=== PATIENT | male | born 1970 | race American Indian/Alaskan Native ===

== ENCOUNTER 2024-07-27 09:44 | Outpatient (REF) | payer MEDICAID, SELFPAY ==
[2024-07-27 11:50] LABS: Alanine Aminotransferase 17 U/L (0-40); Albumin Level 4.2 g/dL (3.5-5.0); Alkaline Phosphatase 55 U/L (39-117); Anion Gap 11 (12-20); Aspartate Amino Transferase 37 U/L (5-37); Bilirubin Direct 0.2 mg/dL (0.0-0.5); Bilirubin Total 0.8 mg/dL (0.0-1.0); Blood Urea Nitrogen 17 mg/dL (9-16); Calcium 9.7 mg/dL (8.4-10.2); Carbon Dioxide 25 mmol/L (22-29); Chloride 107 mmol/L (96-108); Cholesterol 180 mg/dL (<200); Estimated Glomerular Filt Rate > 60; Glucose Random 105 mg/dL (60-115); HDL Cholesterol 44 mg/dL (>40); LDL Cholesterol Calculated 121 mg/dL (<100); Sodium 139 mmol/L (135-145); Total Protein 7.9 g/dL (6.5-8.0); Triglycerides 76 mg/dL (<150)
[2024-07-27 12:03] LABS: PSA,Total (Free>4and<10) 1.09 ng/mL (0.00-4.00)
[2024-07-27 12:04] LABS: Estimated Average Glucose 88 mg/dL; Hemoglobin A1C 93.1166 umol/L; Hemoglobin A1c % 4.7 % (<6.0); Total Hemoglobin (HGBA1C) 3283.5007 umol/L
[2024-08-01 14:34] LABS: Testosterone, Total 388 ng/dL (250-1100)
== END 2024-07-27 09:45 | disposition home or self-care (01) ==
LOC: HO.HHCL 09:44
PROVIDERS: Visit Provider Student in an Organized Health Care Education/Training Program
DX: N52.9 Male erectile dysfunction, unspecified (principal); I10 Essential (primary) hypertension
CPT/HCPCS: 36415; 80048; 80061; 80076; 83036; 84153; 84403

== ENCOUNTER 2025-06-15 10:25 | Outpatient (REF) | payer SELFPAY ==
--- OUTSIDE RECORDS SUMMARY | 2025-06-15 09:45 | XMS_ITS | Encounter Summary ---
Author Organization [employer] [facility] Address [address] [place] [address] 7 [place] [address] Care Team Providers Care Measurement Psychologist Name Role Phone Delia Romero CNP Primary Care Provider [phone] Reason for Referral * Consultation (Routine) - Pending Review Specialty Diagnoses / Procedures Referred By Justin staples Referred To Contact Urology Diagnoses Erectile dysfunction, unspecified erectile dysfunction type Delia Romero CNP [address] [place] [address] Phone: tel: fax: Referral ID Status Reason Start Date Expiration Date Visits Requested Visits Authorized [id number] Pending Review Specialty Services Required 06/15/2025 06/15/2026 1 1 * Consultation (Routine) - Authorized Specialty Diagnoses / Procedures Referred By Justin staples Referred To Contact Behavioral Health Diagnoses Anxiety Delia Romero CNP [address] [place] [address] Phone: tel: fax: Referral ID Status Reason Start Date Expiration Date Visits Requested Visits Authorized [id number] Authorized Specialty Services Required 06/15/2025 06/15/2026 1 1 * Consultation (Routine) - Pending Review Specialty Diagnoses / Procedures Referred By Justin staples Referred To Contact Gastroenterology Diagnoses Encounter for screening for malignant neoplasm of colon Delia Romero CNP [address] [place] [address] Phone: tel: fax: Referral ID Status Reason Start Date Expiration Date Visits Requested Visits Authorized [id number] Pending Review Specialty Services Required 06/15/2025 06/15/2026 1 1 Reason for Visit * Reason Comments Follow-up referrals Encounter Details Date Type Department Care Team ([facility] st Contact Info) Description 06/15/2025 9:45 AM EDT Office Visit [facility] [address] [place] [address] Delia Romero CNP [address], [place] [phone] Encounter for screening for malignant neoplasm of colon (Primary Dx); Anxiety; Constipation, unspecified constipation type; Erectile dysfunction, unspecified erectile dysfunction type; Hypertension, unspecified type; Dietary counseling; Exercise counseling; Class 2 severe obesity due to excess calories with serious comorbidity and body mass index (BMI) of 37.0 to 37.9 in adult (CMS/[facility]) Social History Tobacco Use Types Packs/Day Years Used Date Smoking Tobacco: Never Passive Smoke Exposure: Never Smokeless Tobacco: Never Depression Answer Date Recorded Patient Health Questionnaire-9 Score 10 06/15/2025 Patient Health Questionnaire-9 Score 10 06/15/2025 Last PHQ-9: Questionnaire Data Not on file 0 06/15/2025 Housing Stability Answer Date Recorded What is your housing situation today? I have demetrio yao 12/24/[address] you li ve. Do you have problems with any of the following? None of the above 12/24/2024 Food Insecurity Answer Date Recorded Within the past 12 months, y ou worried that your food would run out before you got money to buy more: Never True 12/24/2024 Within the past 12 months,th e food you bought just didn't last and you didn't have enough money to get more: Never True Transportation Answer Date Recorded In the past 12 months, has l ack of transportation kept you from medical appts, meetings, work or from getting things needed for daily living? No 12/24/2024 Utilities Answer Date Recorded In the past 12 months, has t he electric, gas, oil or water company threatened to shut off services in your home? No 12/24/2024 Depression Answer Date Recorded Patient Health Questionnaire-2 Score 2 06/15/2025 Internet Access Answer Date Recorded Internet Access Q1 Yes 12/24/2024 Internet Access Q2 Not on file 12/24/2024 Sex and Gender Information Value Date Recorded Sex Assigned at Male 07/01/2023 10:32 AM EDT Legal Sex Male 10:22 AM EDT Gender Identity Male 07/01/2023 10:32 AM EDT Sexual Orientation Straight 07/01/2023 10 :32 AM EDT documented as of this encounter Last Filed Vital Signs Vital Sign Reading Time Taken Comments Blood Pressure 138/84 06/15/2025 9:50 AM EDT Pulse 74 06/15/2025 9:50 AM EDT Temperature 36.6 C (97.9 F) 06/15/2025 9:50 AM EDT Respiratory Rate 18 06/15/2025 9:50 AM EDT Oxygen Saturation 99% 06/15/2025 9:50 AM EDT Inhaled Oxygen Concentration - - Weight 105 kg (232 lb) 06/15/2025 9:50 AM EDT Height 167.6 cm (5' 6 ) 06/15/2025 9:50 AM EDT Body Mass Index 37.45 06/15/2025 9:50 AM EDT documented in this encounter Functional Status * Over the past 2 weeks, how often have you been bothered by any of the following problems? Question Answer Date of Assessment Author Patient Health Questionnaire -2 Score 2 06/15/2025 11:44 AM EDT Sa phil Clements [place] * Little interest or pleasure in doing things Answer Date of Assessment Author Several days 06/15/2025 11:44 AM EDT Fely Coleman [place] * Feeling down, depressed, or hopeless Answer Date of Assessment Author Several days 06/15/2025 11:44 AM EDT Fely Coleman MA * Trouble falling or staying asleep, or sleeping too much Answer Date of Assessment Author Nearly every day 06/15/2025 11:44 AM EDT Fely Sheppard MA * Feeling tired or having little energy Answer Date of Assessment Author Nearly every day 06/15/2025 11:44 AM EDT Fely Sheppard MA * Poor appetite or overeating Answer Date of Assessment Author Not at all 06/15/2025 11:44 AM EDT Fely Coleman MA * Feeling bad about yourself - or that you are a failure or have let yourself or your family down Answer Date of Assessment Author Several days 06/15/2025 11:44 AM EDT Fely Coleman MA * Trouble concentrating on things, such as reading the newspaper or watching television Answer Date of Assessment Author Not at all 06/15/2025 11:44 AM EDT Fely Coleman MA * Moving or speaking so slowly that other people could have noticed? Or the opposite - being so fidgety or restless that you have been moving around a lot more than usual. Answer Date of Assessment Author Several days 06/15/2025 11:44 AM EDT Fely Coleman MA * Thoughts that you would be better off or hurting yourself in some way Answer Date of Assessment Author Not at all 06/15/2025 11:44 AM SNEHAT Fely Coleman MA * Patient Health Questionnaire-9 Score Answer Date of Assessment Author 06/15/2025 11:44 AM SNEHAT Fely Coleman MA * How difficult have these problems made it for you to do your work, take care of things at home, or get along with other people? Answer Date of Assessment Author Somewhat difficult 06/15/2025 11:44 AM EDT Fely Alvarez [place] * Over the last 2 weeks, how often have you been bothered by any of the following problems? Question Answer Date of Assessment Author Feeling nervous, anxious, or on edge 1 06/15/2025 11:44 AM EDT Sa phil Clements MA Not being able to stop or control worrying 0 06/15/2025 11:44 AM EDT Sa phil Clements MA Worrying too much about different things 1 06/15/2025 11:44 AM SNEHAT Sa phil Clements MA Trouble relaxing 0 06/15/2025 11:44 AM SNEHAT Fely Clements MA Being so restless that it is hard to sit still 0 06/15/2025 11:44 AM EDT Sa phil Clements MA Becoming easily annoyed or irritable 1 06/15/2025 11:44 AM EDT Sa phil Clements MA Feeling afraid as if somethi ng awful might happen 1 06/15/2025 11:44 AM EDT Sa phil Clements MA JAY-7 Total Score 4 06/15/2025 11:44 AM EDT Fely Clements MA documented as of this encounter Progress Notes * Delia Romero CNP - 06/15/2025 9:45 AM EDT Subjective Patient ID: Edu Levy is a 54 y.o. male who presents for f/u for chronic conditions. HPI Current concerns - Reports hard and bloated abdomen, feeling as if abdomen is distended - Longstanding difficulty with bowel movements, describes constipation, currently going to the bathroom once daily but not always successfully - Occasional presence of bright and dark red blood in stool, notes strong stool odor - History of constipation, states it worsens during periods of emotional stress; associates currentsymptoms with anxiety over inability to travel to [place] - Denies depression, feels mentally well and positive except for current stressor -reports he had insurance change since he was last referred to urology, he was unable to attend urology appt when he was initially referred because his old insurance did not cover this service, he isrequesting new referral today to further evaluate his ED. Chronic conditions MILLIE -upon chart review it appears office has tried to reach pt to schedule appt without success. -he denies hearing from anyone regarding scheduling sleep study. HTN Pt adherent to medications Reports he has been trying to modify his diet for weight loss. Cysts of upper eyelid Pt referred for surgical removal, likely beningn nevus vs. SK Review of Systems Objective Vitals: 06/15/25 0950 BP: 138/84 Pulse: 74 Resp: 18 Temp: 97.9 ??F (36.6 ??C) SpO2: 99% Physical Exam Vitals reviewed. Constitutional: General: He is not in acute distress. Appearance: Normal appearance. He is not ill-appearing, toxic-appearing or diaphoretic. HENT: Head: Normocephalic and atraumatic. Cardiovascular: Rate and Rhythm: Normal rate and regular rhythm. Pulses: Normal pulses. Heart sounds: Normal heart sounds. No murmur heard. No friction rub. No gallop. Pulmonary: Effort: Pulmonary effort is normal. No respiratory distress. Breath sounds: Normal breath sounds. No stridor. No wheezing, rhonchi or rales. Chest: Chest wall: No tenderness. Abdominal: General: Bowel sounds are normal. There is distension. Palpations: There is no mass. Tenderness: There is no abdominal tenderness. Musculoskeletal: Right lower leg: No edema. Left lower leg: No edema. Neurological: General: No focal deficit present. Mental Status: He is alert and oriented to person, place, and time. Mental status is at baseline. Psychiatric: Mood and Affect: Mood normal. Behavior: Behavior normal. Thought Content: Thought content normal. Judgment: Judgment normal. Assessment/Plan Problem List Items Addressed This Visit Hypertension BP at goal <140/90 Continue on current medications Continue with low sodium diet and ample hydration - Contacted polysomnography office to facilitate scheduling of polysomnography; patient to be notified regarding appointment status. Dietary counseling Exercise counseling Erectile dysfunction Relevant Orders Referral to Urology Other Visit Diagnoses Encounter for screening for malignant neoplasm of colon - Primary Relevant Medications polyethylene glycol, PEG, 3350 (MiraLax) 17 GM/SCOOP powder docusate sodium (Colace) 100 MG capsule Other Relevant Orders Referral to Gastroenterology Colonoscopy is due and appropriate for evaluating pt's current GI sx. Anxiety Relevant Medications polyethylene glycol, PEG, 3350 (MiraLax) 17 GM/SCOOP powder hydrOXYzine HCl (Atarax) 25 MG tablet Other Relevant Orders Referral to Behavioral Health Anxiety is intermittent not requiring daily maintenance medication - Prescribed hydroxyzine for management of anxiety symptoms, to be taken as needed up to three times daily (morning, noon, and bedtime) when experiencing anxiety. Not required for daily use; only take when symptomatic. - Referred to a therapist for psychological support and management of anxiety, with option to discuss emotional concerns. Constipation, unspecified constipation type Relevant Medications polyethylene glycol, PEG, 3350 (MiraLax) 17 GM/SCOOP powder docusate sodium (Colace) 100 MG capsule Other Relevant Orders CBC auto differential Fecal Globin By Immunochemistry Iron And Total Iron Binding Capacity Comprehensive Metabolic Panel Helicobacter pylori Antigen, EIA, Stool - Referred for colonoscopy to evaluate for possible colorectal pathology in the setting of changes in bowel movements and rectal bleeding. The referral process will include communication from the facility to arrange the procedure. - Ordered blood work to assess for underlying abnormalities or concerns contributing to gastrointestinal symptoms. Laboratory testing to be performed today; fasting not required. - Prescribed stool softener to promote regular bowel movements and alleviate constipation. - Prescribed Miralax to be used as needed to facilitate bowel movements and improve regularity. Class 2 severe obesity due to excess calories with serious comorbidity and body mass index (BMI) of37.0 to 37.9 in adult (CMS/[facility]) Dietary Recommendations: Fruits, vegetables, whole grains, protein foods, and fat-free or low-fat dairy products are healthychoices. Eat different types of protein foods in your diet. This can include seafood, lean meats, poultry, beans, peas, lentils, nuts, seeds, soy products, and eggs. Limit foods and beverages higher in added sugars, saturated fat, and sodium. Exercise Recommendations: At least 150 minutes of moderate-intensity physical activity per week, or an equivalent combinationof moderate- and vigorous-intensity activity F/u in 1 month on mental health documented in this encounter Plan of Treatment Upcoming Encounters Date Type Department Care Team (Late st Contact Info) Description 07/15/2025 1:30 PM EDT Office Visit [facility] [address] [place] [phone] Delia Romero CNP [address] [place] [address] Scheduled Orders Name Type Priority Associated Diagnoses Orde r Schedule CBC auto differential Lab Routine Constipation, unspecified constipation type Expected: 06/15/2025 (Approximate), Expires: 06/15/2026 Fecal Globin By Immunochemistry Lab Routine Constipation, unspecified constipation type Expected: 06/15/2025 (Approximate), Expires: 06/15/2026 Iron And Total Iron Binding Capacity Lab Routine Constipation, unspecified constipation type Expected: 06/15/2025, Expires: 06/15/2026 Comprehensive Metabolic Panel Lab Routine Constipation, unspecified constipation type Expected: 06/15/2025 (Approximate), Expires: 06/15/2026 Helicobacter pylori Antigen, EIA, Stool Lab Routine Constipation, unspecified constipation type Expected: 06/15/2025, Expires: 06/15/2026 Scheduled Referrals Name Type Priority Associated Diagnoses Order Schedule Referral to Gastroenterology Outpatient Referral Routine Encounter for screening for malignant neoplasm of colon Expected: 06/15/2025 (Approximate), Expires: 06/15/2026 Referral to Behavioral Health Outpatient Referral Routine Anxiety Expected: 06/15/2025 (Approximate), Expires: 12/13/2026 Referral to Urology Outpatient Referral Routine Erectile dysfunction, unspecified erectile dysfunction type Expected: 06/15/2025 (Approximate), Expires: 06/15/2026 documented as of this encounter Visit Diagnoses Diagnosis Encounter for screening for malignant neoplasm of colon- Primary Anxiety Anxiety state, unspecified Constipation, unspecified constipation type Erectile dysfunction, unspecified erectile dysfunction type Hypertension, unspecified type Dietary counseling Dietary surveillance and counseling Exercise counseling Class 2 severe obesity due to excess calories with serious comorbidity and body mass index (BMI) of 37.0 to 37.9 in adult (CMS/[facility]) documented in this encounter Additional Health Concerns Assessment Noted Time PHQ-9 Depression Total Score: 025 11:44 AM EDT documented as of this encounter Care Teams Measurement Psychologist Relationship Specialty Start Date End Date Delia Romero CNP [address] [place] [id number] PCP - General Family Medicine 09/24/24 documented as of this encounter
--- OUTSIDE RECORDS SUMMARY | 2025-06-15 12:38 | XMS_ITS | Clinical Summary ---
Author Organization [employer] Address [address] [facility] [address] [place] [address] Care Team Providers Care Residential Carpenter Name Role Phone Delia Romero MANAGER PRIMARY CARE Primary Care Provider [phone] [phone] Allergies No known active allergies Medications * This document contains information received from the source organization and may not represent a complete record from that organization. sildenafil (Viagra) 50 MG tabletIndication s:Erectile dysfunction, unspecified erectile dysfunction type Take 1 tablet (50 mg) by mouth if needed for erectile dysfunction. 10 tablet 11 4 Active losartan (Cozaar) 50 MG tabletIndication s:Hypertension, unspecified type Take 1 tablet (50 mg) by mouth Once per day. 90 tablet 5 Active polyethylene glycol, PEG, 3350 (MiraLax) 17 GM/SCOOP powderIndication s:Encounter for screening for malignant neoplasm of colon Take 17 g by mouth Once per day for 14 days. 238 g 5 06/29/20 25 Active docusate sodium (Colace) 100 MG capsuleIndicatio ns:Encounter for screening for malignant neoplasm of colon Take 1 capsule (100 mg) by mouth 2 times daily for 10 days. 20 capsule 5 06/25/20 25 Active hydrOXYzine HCl (Atarax) 25 MG tabletIndication s:Anxiety Take 1 tablet (25 mg) by mouth if needed in the morning, at noon, and at bedtime for itching. 90 tablet 5 07/15/20 25 Active Active Problems Problem Noted Date Diagnosed Date Healthcare maintenance 09/24/2024 Assessment & Plan (09/24/2024 3:22 PM EST): Offered due vaccinations, pt declines. Pt declines STI/STD screening today. Will send referral for [facility] for routine dental examination Ordered CBC to obtain baseline, also to r/o nutritional etiology for glossitis. Cyst of left upper eyelid 09/24/2024 Assessment & Plan (09/24/2024 3:25 PM EST): Multiple skin tags present on eyelids bilaterally, one prominent 1.5 mm flesh colored cyst that appears to be fluid filled over R eyelid has been growing in size. Will send referral to derm clinic Dietary counseling 09/24/2024 Assessment & Plan (09/24/2024 3:27 PM EST): Pt plans to eat low sodium diet and incorporate at least 2-3 serving of fruits and vegetables daily. Exercise counseling 09/24/2024 Assessment & Plan (09/24/2024 3:27 PM EST): Pt plans to exercise for 30 minutes daily Tongue swelling 09/24/2024 Assessment & Plan (09/24/2024 3:28 PM EST): No current tongue swelling, physical exam wnl today Pt complaining of snoring and tongue swelling that affects breathing while asleep Sent referral to sleep medicine Erectile dysfunction 09/24/2024 Assessment & Plan (09/24/2024 3:30 PM EST): Educated pt that medication works best on an empty stomach and it should be used 1 hr prior to intercourse. Sees a urologist Adjustment disorder with mixed anxiety and depre ssed mood 09/15/2024 Hypertension 07/02/2024 Assessment & Plan (09/24/2024 3:23 PM EST): Pt BP at goal <140/90 when rechecked Denies CP, PARADA, dizziness Continue on Cozaar as prescribed Assessment & Plan (07/02/2024 3:33 PM EDT): Will call to get pt on new pt list. -prescribed 30 days refill with 1 repeat. -ER precautions given Encounters Date Type Department Care Team Description 06/15/2025 9:45 AM EDT Office Visit [facility] MED & PEDS [address] [place] [address] Delia Romero CNP Encounter for screening for malignant neoplasm of colon (Primary Dx); Anxiety; Constipation, unspecified constipation type; Erectile dysfunction, unspecified erectile dysfunction type; Hypertension, unspecified type; Dietary counseling; Exercise counseling; Class 2 severe obesity due to excess calories with serious comorbidity and body mass index (BMI) of 37.0 to 37.9 in adult ([facility]) 06/15/2025 Travel 06/07/2025 Telephone [facility] MED & PEDS [address] [place], [place] [phone] Delia Romero CNP chart prep 03/25/2025 10:15 AM EDT Office Visit [facility] MEDICINE [address] [place], [place] [phone] Dawood Wallis MD Cyst of left upper eyelid (Primary Dx) 03/25/2025 Refill [facility] [address] [place], [place] [phone] Delia Romero CNP Hypertension, unspecified type 03/25/2025 Refill [facility] [address] [place], [place] [phone] Delia Romero CNP Hypertension, unspecified type 03/25/2025 Travel from Last 3 Months Immunizations Immunization Administration Dates Next Due HepB-CpG 05/01/2024 Tdap 04/24/2024 Family History Medical History Relation Name Comments Diabetes Father Throat cancer Father Relation Name Status Comments Father Social History Tobacco Use Types Packs/Day Years Used Date Smoking Tobacco: Never Passive Smoke Exposure: Never Smokeless Tobacco: Never Tobacco Cessation:Counseling Given: Not Answered Depression Answer Date Recorded Patient Health Questionnaire-9 [...] Orientation Straight 07/01/2023 10 :32 AM EDT Last Filed Vital Signs Vital Sign Reading [...] Mass Index 37.45 06/15/2025 9:50 AM EDT Plan of Treatment Upcoming Encounters Date Type Department Care Team (Late st Contact Info) Description 07/15/2025 1:30 PM EDT Office Visit [facility] MED & PEDS [address] [place], [place] [phone] Delia Romero CNP [address] [place] [address] Health Maintenance Due Date Last Done Comments CT Colonography 1970 Colonoscopy 1970 FIT DNA/Cologuard 1970 FIT 1970 FOBT 1970 Sigmoidoscopy 1970 Derm Melanoma Skin Check 01/02/1971 Pneumococcal Vaccine: 50+ Years (1 of 1 - PCV) 2020 COVID-19 Vaccine (2 - 2024-2 6 season) 2025 05/08/2024 Influenza Vaccine (#1) 2025 Colorectal Cancer Screening 09/24/2025 Postponed from 1970 (Patient Refused) HIV Screening 09/24/2025 Postponed from 1970 (Patient Refused) Hepatitis C Screening 09/24/2025 Postpo johnathon from 1988 (Patient Refused) Zoster Vaccines (1 of 2) 09/24/2025 Pos tponed from 2020 (Patient Refused) Depression Monitoring 12/13/2025 06/15/2025 , 06/15/2025 SDOH Screening 12/24/2025 12/24/2024 Alcohol/Substance Use Screening 01/05/2026 01/05/2025 Disability Screening 01/05/2026 01/05/2025 Tobacco Screening 01/05/2026 01/05/2025 Lipid Panel 07/27/2029 07/27/2024 DTaP/Tdap/Td Vaccines (2 - T d or Tdap) 04/24/2034 04/24/2024 RSV Patients and Patients Aged 60 years or older (1 - 1-dose 75+ series) 2045 Hepatitis B Vaccines Discontinued 05/01/2024 HIB Vaccines Aged Out No longer eligi ble based on patient's age to complete this topic HPV Vaccines Aged Out No longer eligi ble based on patient's age to complete this topic Hepatitis A Vaccines Aged Out No long er eligible based on patient's age to complete this topic IPV Vaccines Aged Out No longer eligi ble based on patient's age to complete this topic Meningococcal B Vaccine Aged Out No l onger eligible based on patient's age to complete this topic Meningococcal Vaccine Aged Out No sandra charbel eligible based on patient's age to complete this topic RSV under 20 months Aged Out No longe r eligible based on patient's age to complete this topic Rotavirus Vaccines Aged Out No longer eligible based on patient's age to complete this topic Procedures Procedure Name Priority Date/Time Associated Diagnosis Comments LIPID PANEL, STANDARD Routine 07/27/2024 9:50 AM EDT Primary hypertension from Last 3 Months or Most Recently Relevant to Health Maintenance Results * (ABNORMAL) Lipid Panel, Standard (07/27/2024 9:50 AM EDT) Triglycerides 76 <150 mg/dL [facility] Comment:Desirable Triglyceri de: less than 150 mg/dLBorderline High Triglyceride 150-199 mg/dLHigh Triglyceride: 200-499 mg/dLVery High Triglyceride: greater than or equal to 5OO mg/dL Cholesterol 180 <200 mg/dL [facility] Comment:Desirable Cholestero l: less than 200 mg/dLBorderline High Cholesterol: 200-239 mg/dLHigh Cholesterol: greater than 239 mg/dL LDL Cholesterol Calculated 121(H) <100 mg/dL [facility] Comment:Desirable LDL: less than 100 mg/dLNear Optimal/Above Optimal LDL: 110- 129 mg/dLBorderline High LDL: 130-159 mg/dLHigh LDL: 160-189 mg/dLVery High LDL: greater than or equal to 190 mg/dL HDL Cholesterol 44 >40 mg/dL [facility] Comment:Desirable HDL: great er than 40 mg/dL Note: This HDL assay may give artificially low results in patients with liver disease. Blood Venous blood specimen / Unknown 07/27/2024 9:50 AM EDT 07/27/2024 11:04 AM EDT us Maddi Buenrostro MD LAB BLOOD ORDERABLES Final Resul t [facility] [address] [place], [place] [phone] from Last 3 Months or Most Recently Relevant to Health Maintenance Insurance [employer] [facility] 1 Care Teams Residential Carpenter Relationship Specialty Start Date End Date Delia Romero CNP [address] [place] [id number] PCP - General Family Medicine 09/24/24
--- OUTSIDE RECORDS SUMMARY | 2025-06-15 12:38 | XMS_ITS | Encounter Summary ---
Author Organization [employer] [facility] Address [address] [facility] [address] [place] [address] Care Team Providers Care Visitor Services Associate Name Role Phone Delia Romero CNP Primary Care Provider [phone] [phone] Reason for Visit * Reason Comments Med Refill Encounter Details Date Type Department Care Team (Late st Contact Info) Description 06/22/2024 Refill [facility] [address] [place], [place] [phone] Sandy Scanlon FNP [address] [place] [address] Social History Tobacco Use Types Packs/Day Years Used Date Smoking Tobacco: Never Passive Smoke Exposure: Never Smokeless Tobacco: Never Sex and Gender Information Value Date Recorded Sex Assigned at Male 07/01/2023 10:32 AM EDT Legal Sex Male 10:22 AM EDT Gender Identity Male 07/01/2023 10:32 AM EDT Sexual Orientation Straight 07/01/2023 10 :32 AM EDT documented as of this encounter Plan of Treatment Upcoming Encounters Date Type Department Care Team (Late st Contact Info) Description 07/15/2025 1:30 PM EDT Office Visit [facility] MED & PEDS [address] [place] [address] Delia Romero CNP [address] [place] [address] documented as of this encounter Visit Diagnoses Not on filedocumented in this encounter Care Teams Visitor Services Associate Relationship Specialty Start Date End Date Delia Romero CNP [address] [place] [address] PCP - General Family Medicine 09/24/24 documented as of this encounter
--- OUTSIDE RECORDS SUMMARY | 2025-06-15 12:38 | XMS_ITS | Encounter Summary ---
Author Organization [employer] Address [address] [facility] [address] [place] [address] Care Team Providers Care Stock Patcher Name Role Phone Nick Lopezjfliv FAUSTINO Primary Care Provider [phone] [phone] Reason for Visit * Reason Comments Med Refill Encounter Details Date Type Department Care Team (Late st Contact Info) Description 08/24/2024 Refill [facility] [address] [place], [place] [phone] Ramila Palafox MD [address] [place], [place] [phone] Hypertension, unspecified type Social History Tobacco Use Types Packs/Day Years Used Date Smoking Tobacco: Never Passive Smoke Exposure: Never Smokeless Tobacco: Never Sex and Gender Information Value Date Recorded Sex Assigned at Male 07/01/2023 10:32 AM EDT Legal Sex Male 10:22 AM EDT Gender Identity Male 07/01/2023 10:32 AM EDT Sexual Orientation Straight 07/01/2023 10 :32 AM EDT documented as of this encounter Miscellaneous Notes * Telephone Encounter - Tracy Thompson RN - 09/06/2024 11:49 AM EST Pt presents to Walk In requesting refill on BP medication from Sandy Scanlon NP. Pt informed would need to be seen by provider as pt not assigned to provider. Pt declines to wait to be seen by provider today, reports will come back tomorrow. RN informed pt, message would be sent regarding new pt appt. Pt verbalized understanding. No s/s expressed at this time with RN. RN reviewed ED precautions with pt. Pt verbalized understanding and in agreement. No further questions or concerns expressed at this time. Pt to F/U as needed. RN will forward message to new pt PAR regarding new pt/TP? Appt (TC noted from 07/09/24 regarding TPappt.) documented in this encounter Plan of Treatment Upcoming Encounters Date Type Department Care Team (Late st Contact Info) Description 07/15/2025 1:30 PM EDT Office Visit [facility] MED & PEDS [address] [place] [address] Delia Romero CNP [address] [place], [place] [phone] documented as of this encounter Visit Diagnoses Diagnosis Hypertension, unspecified type documented in this encounter Care Teams Stock Patcher Relationship Specialty Start Date End Date Delia Romero CNP [address] [place], [place] [phone] PCP - General Family Medicine 09/24/24 documented as of this encounter
--- OUTSIDE RECORDS SUMMARY | 2025-06-15 12:38 | XMS_ITS | Encounter Summary ---
Author Organization [employer] Address [address] [place] [address] Care Team Providers Care Manager Recruiting Name Role Phone Delia Romero FAUSTINO Primary Care Provider [phone] [phone] Encounter Details Date Type Department Care Team (Latest Contact Info) Description 06/15/2025 Travel Social History Tobacco Use Types Packs/Day Years [...] AM EDT documented as of this encounter Functional Status * Over the [...] 11:44 AM EDT Fely Coleman MA * Patient Health Questionnaire-9 Score Answer Date of Assessment Author 10 06/15/2025 11:44 AM EDT Fely Coleman MA * How difficult have [...] annoyed or irritable 1 06/15/2025 11:44 AM SNEHAT Sa phil Clements [place] Feeling afraid as if somethi ng awful might happen 1 06/15/2025 11:44 AM SNEHAT Sa phil Clements [place] JAY-7 Total Score 4 06/15/2025 11:44 AM SNEHAT Fely Clements [place] documented as of this encounter Plan of Treatment Upcoming Encounters Date Type Department Care Team (Late st Contact Info) Description 07/15/2025 1:30 PM EDT Office Visit [facility] MED & PEDS [address] [place] [address] Delia Romero CNP [address] [place] [address] documented as of this encounter Visit Diagnoses Not on filedocumented in this encounter Additional Health Concerns Assessment Noted Time PHQ-9 Depression Total Score: 10 025 11:44 AM EDT documented as of this encounter Care Teams Manager Recruiting Relationship Specialty Start Date End Date Delia Romero CNP [address] [place] [id number] PCP - General Family Medicine 09/24/24 documented as of this encounter
[2025-06-15 14:26] LABS: MANUAL DIFF FLAG NO
[2025-06-15 14:33] LABS: Hematocrit 43.7 % (42.0-52.0); Hemoglobin 14.7 g/dl (14.0-18.0); Imm Gran Abs Auto 0.05 X10*3/uL (0.00-0.03); Imm Gran Pct Auto 0.5 % (0.0-0.4); Lymphocytes Absolute Auto 2.6 X10*3/uL (1.2-4.9); Mean Corpuscular HGB Conc 33.6 g/dl (31.0-36.0); Mean Corpuscular Hemoglobin 28.0 pg (27.0-33.0); Mean Corpuscular Volume 83.2 fL (80.0-98.0); NRBC Abs Auto 0.000 X10*3/uL (0.0-0.012); NRBC Pct Auto 0.0 /100WBC (0.0-0.2); Platelet Count 187 X10*3/uL (160-400); Red Blood Count 5.25 X10*6/uL (4.60-5.80); White Blood Count 9.2 X10*3/uL (4.8-10.8)
[2025-06-15 15:28] LABS: Alanine Aminotransferase 19 U/L (0-40); Albumin Level 4.3 g/dL (3.5-5.0); Alkaline Phosphatase 58 U/L (39-117); Anion Gap 10 (12-20); Aspartate Amino Transferase 35 U/L (5-37); Blood Urea Nitrogen 14 mg/dL (9-16); Calcium 9.2 mg/dL (8.4-10.2); Carbon Dioxide 28 mmol/L (22-29); Chloride 105 mmol/L (96-108); Estimated Glomerular Filt Rate > 60; Iron 83 mcg/dL (45-160); Percent Iron Saturation 33 % (15-50); Potassium 4.0 mmol/L (3.3-5.1); Sodium 139 mmol/L (135-145); Total Iron Binding Capacity 254 mcg/dL (228-428); Total Protein 7.9 g/dL (6.5-8.0); Unsaturated Iron Binding 171 ug/dL
== END 2025-06-15 10:26 | disposition home or self-care (01) ==
LOC: HO.CHCLDS 10:25
DX: K59.00 Constipation, unspecified (principal); Z13.0 Encounter for screening for diseases of the blood and blood-forming organs and certain disorders involving the immune mechanism
CPT/HCPCS: 36415; 80053; 83540; 85025

== ENCOUNTER 2025-07-12 13:05 | Outpatient (REF) | payer OTHER, SELFPAY ==
--- OUTSIDE RECORDS SUMMARY | 2025-07-12 16:03 | XMS_ITS | Encounter Summary ---
Author Organization [employer] Address [address] [facility] [address] [place] [address] Care Team Providers Care Rn Clinical Quality Name Role Phone Nick Delia FAUSTINO Primary Care Provider [phone] [phone] Reason for Visit * Reason Comments Med Refill Encounter Details Date Type Department Care Team (Late st Contact Info) Description 08/24/[address] [facility] [address] [place], [place] [phone] Rmaila Palafox MD [address] [place], [place] [phone] Hypertension, unspecified type Social History Tobacco Use [...] Description 07/15/2025 1:30 PM EDT Office Visit [facility] MED & PEDS [address] [place] [address] Delia Romero CNP [address] [place] [address] documented as of this encounter Visit Diagnoses Diagnosis Hypertension, unspecified type documented in this encounter Care Teams Rn Clinical Quality Relationship Specialty Start Date End Date Delia Romero CNP PCP - General Family Medicine 09/24/24 documented as of this encounter
--- OUTSIDE RECORDS SUMMARY | 2025-07-12 16:03 | XMS_ITS | Encounter Summary ---
Author Organization [facility] [employer] Address [address] [facility] [address] [place] [address] Care Team Providers Care Golf Teacher Name Role Phone Delia Romero CNP Primary Care Provider [phone] [phone] Reason for Visit * Reason Onset Date Comments Med Refill 07/04/2025 Encounter Details Date Type Department Care Team (Late st Contact Info) Description 07/04/2025 Telephone [facility] [address] [place], [place] [phone] Delia Romero CNP [address] [place] [address] Med Refill Social History Tobacco Use Types Packs/Day Years [...] encounter Miscellaneous Notes * Telephone Encounter - Ramila Caballero RN - 07/04/2025 4:03 PM EDT Pt walked in requesting refill on losartan. Advised will have pcp review refill. documented in this encounter Plan of Treatment Upcoming Encounters Date Type Department Care Team (Late st Contact Info) Description 07/15/2025 1:30 PM EDT Office Visit [facility] MED & PEDS [address] [place] [address] Delia Romero CNP [address] [place] [address] documented as of this encounter Visit Diagnoses Not on filedocumented in this encounter Additional Health Concerns Assessment Noted Time PHQ-9 Depression Total Score: 10 025 11:44 AM EDT documented as of this encounter Care Teams Golf Teacher Relationship Specialty Start Date End Date Delia Romero CNP PCP - General Family Medicine 09/24/24 documented as of this encounter
--- OUTSIDE RECORDS SUMMARY | 2025-07-12 16:03 | XMS_ITS | Clinical Summary ---
Author Organization [employer] Address [address] [facility] [address] [place] [address] Care Team Providers Care Plastics Engineer Name Role Phone Delia Romero SOLDER DEPOSIT OPERATOR Primary Care Provider [phone] Allergies No known active allergies Medications * This document contains information received from the source organization and may not represent a complete record from that organization. sildenafil (Viagra) 50 MG tabletIndicatio ns:Erectile dysfunction, unspecified erectile dysfunction type Take 1 tablet (50 mg) by mouth if needed for erectile dysfunction. 10 tablet 11 09/24/20 24 Active hydrOXYzine HCl (Atarax) 25 MG tabletIndicatio ns:Anxiety Take 1 tablet (25 mg) by mouth if needed in the morning, at noon, and at bedtime for itching. 90 tablet 06/15/20 25 025 Active losartan (Cozaar) 50 MG tabletIndicatio ns:Hypertension , unspecified type Take 1 tablet (50 mg) by mouth Once per day. 90 tablet 07/05/20 25 Active losartan (Cozaar) 50 MG tabletIndicatio ns:Hypertension , unspecified type Take 1 tablet (50 mg) by mouth Once per day. 90 tablet 03/25/20 25 025 Discontinued(Re order (will not trigger notification to Pharmacy)) polyethylene glycol, PEG, 3350 (MiraLax) 17 GM/SCOOP powderIndicatio ns:Encounter for screening for malignant neoplasm of colon Take 17 g by mouth Once per day for 14 days. 238 g 06/15/20 25 025 docusate sodium (Colace) 100 MG capsuleIndicati ons:Encounter for screening for malignant neoplasm of colon Take 1 capsule (100 mg) by mouth 2 times daily for 10 days. 20 capsule 06/15/20 25 025 losartan (Cozaar) 50 MG tabletIndicatio ns:Hypertension , unspecified type Take 1 tablet (50 mg) by mouth Once per day. 90 tablet 07/05/20 25 025 Discontinued Active Problems Problem Noted Date Diagnosed Date Healthcare maintenance 09/24/2024 Assessment & Plan (09/24/2024 3:22 PM EST): Offered due vaccinations, pt declines. Pt declines STI/STD screening today. Will send referral for [facility] Dental for routine dental examination Ordered [...] Encounters Date Type Department Care Team Description 2025 Orders Only [facility] [address] [place] [address] Delia Romero CNP Hypertension, unspecified type 2025 Telephone [facility] [address] [place] [address] Delia Romero CNP 07/04/2025 Telephone [facility] [address] [place] [address] Delia Romero CNP Med Refill 06/15/2025 9:45 AM EDT Office Visit [facility] [address] [place] [address] Delia Romero CNP Encounter for screening for malignant neoplasm of colon (Primary Dx); Anxiety; Constipation, unspecified constipation type; Erectile dysfunction, unspecified erectile dysfunction type; Hypertension, unspecified type; Dietary counseling; Exercise counseling; Class 2 severe obesity due to excess calories with serious comorbidity and body mass index (BMI) of 37.0 to 37.9 in adult ([facility]) 06/15/2025 Travel 06/07/2025 Telephone [facility] [address] [place] [address] Delia Romero CNP chart prep from Last 3 Months Immunizations Immunization Administration [...] Description 07/15/2025 1:30 PM EDT Office Visit [facility] [address] [place] [address] Delia Romero, FAUSTINO [address] [place] [address] Health Maintenance Due Date Last Done Comments [...] Procedure Name Priority Date/Time Associated Diagnosis Comments COMPREHENSIVE METABOLIC PANEL Routine 06/15/2025 10:26 AM EDT Constipation, unspecified constipation type IRON AND TOTAL IRON BINDING CAPACITY Routine 06/15/2025 10:26 AM EDT Constipation, unspecified constipation type CBC WITH AUTO DIFFERENTIAL Routine 06/15/2025 10:26 AM EDT Constipation, unspecified constipation type LIPID PANEL, STANDARD Routine 07/27/2024 9:50 AM EDT Primary hypertension from Last 3 Months or Most Recently Relevant to Health Maintenance Results * (ABNORMAL) CBC auto differential (06/15/2025 10:26 AM EDT) White Blood Count 9.2 4.8 - 10.8 X10*3/uL [facility] Red Blood Count 5.25 4.60 - 5.80 X10*6/uL [facility] Hemoglobin 14.7 14.0 - 18.0 g/dl [facility] Hematocrit 43.7 42.0 - 52.0 % [facility] Mean Corpuscular Volume 83.2 80.0 - 98.0 fL [facility] Mean Corpuscular Hemoglobin 28.0 27.0 - 33.0 pg [facility] Mean Corpuscular HGB Conc 33.6 31.0 - 36.0 g/dl [facility] Red Cell Distribution Width 12.1 11.0 - 16.0 % [facility] Platelet Count 187 160 - 400 X10*3/uL [facility] Mean Platelet Volume 11.8 9.4 - 12.4 fL [facility] Neutrophils Percent Auto 54.6 45 - 73 % [facility] Imm Gran Pct Auto 0.5(H) 0.0 - 0.4 % [facility] Lymphocytes Percent Auto 28.2 20 - 40 % [facility] Monocytes Percent Auto 8.0 2 - 11 % [facility] Eosinophils Percent Auto 7.6(H) 0 - 4 % [facility] Basophils Percent Auto 1.1 0 - 2 % [facility] NRBC Pct Auto 0.0 0.0 - 0.2 /100WBC [facility] Neutrophils Absolute Auto 5.0 2.0 - 8.3 x10*3/uL [facility] Imm Gran Abs Auto 0.05(H) 0.00 - 0.03 X10*3/uL [facility] Lymphocytes Absolute Auto 2.6 1.2 - 4.9 X10*3/uL [facility] Monocytes Absolute Auto 0.7 0.1 - 1.2 X10*3/uL [facility] Eosinophils Absolute Auto 0.7(H) 0.0 - 0.4 X10*3/uL [facility] Basophils Absolute Auto 0.1 0.0 - 0.2 X10*3/uL [facility] NRBC Abs Auto 0.000 0.0 - 0.012 X10*3/uL [facility] Blood Venous blood specimen / Unknown 06/15/2025 10:26 AM EDT 06/15/2025 2:23 PM EDT [facility] LAB BLOOD ORDERABLES Niesha l Result [facility] [address], [place] [phone] * Iron And Total Iron Binding Capacity (06/15/2025 10:26 AM EDT) Iron 83 45 - 160 mcg/dL [facility] Total Iron Binding Capacity 254 228 - 428 mcg/dL [facility] Percent Iron Saturation 33 15 - 50 % [facility] Unsaturated Iron Binding 171 ug/dL [facility] Blood Venous blood specimen / Unknown 06/15/2025 10:26 AM EDT 06/15/2025 2:35 PM EDT Delia Romero SOLDER DEPOSIT OPERATOR LAB BLOOD ORDERABLES Niesha l Result [facility] [address] [place] [phone] [phone] * (ABNORMAL) Comprehensive Metabolic Panel (06/15/2025 10:26 AM EDT) Sodium 139 135 - 145 mmol/L [facility] Potassium 4.0 3.3 - 5.1 mmol/L [facility] Chloride 105 96 - 108 mmol/L [facility] Carbon Dioxide 28 22 - 29 mmol/L [facility] Anion Gap 10(L) 12 - 20 [facility] Urea Nitrogen (BUN) 14 9 - 16 mg/dL [facility] Creatinine, Serum 1.24 0.5 - 1.4 mg/dL [facility] Estimated Glomerular Filt Rate >60 [facility] Comment:Chronic Kidney Disea se: Estimated GFR < 60 mL/min/[id number] Kidney Disease: Estimated GFR < 15 mL/min/1.73m2 Glucose 103 60 - 115 mg/dL [facility] Calcium 9.2 8.4 - 10.2 mg/dL [facility] Bilirubin, Total 0.6 0.0 - 1.0 mg/dL [facility] Aspartate Amino Transferase 35 5 - 37 U/L [facility] Alanine Aminotransferase 19 0 - 40 U/L [facility] Total Protein 7.9 6.5 - 8.0 g/dL [facility] Albumin Level 4.3 3.5 - 5.0 g/dL [facility] Alkaline Phosphatase 58 39 - 117 U/L [facility] Blood Venous blood specimen / Unknown 06/15/2025 10:26 AM EDT 06/15/2025 2:35 PM EDT us Delia Nick [facility] LAB BLOOD ORDERABLES Niesha l Result Performing Organization Address City/Va Hospital/ZIP Co de Phone Number [facility] [address] [place] [phone] * (ABNORMAL) Lipid Panel, Standard (07/27/2024 9:50 AM EDT) Triglycerides 76 <150 mg/dL [facility] Comment:Desirable Triglyceri de: less than 150 mg/dLBorderline High Triglyceride 150-199 mg/dLHigh Triglyceride: 200-499 mg/dLVery High Triglyceride: greater than or equal to 5OO mg/dL Cholesterol 180 <200 mg/dL [facility] Comment:Desirable Cholestero l: less than 200 mg/dLBorderline High Cholesterol: 200-239 mg/dLHigh Cholesterol: greater than 239 mg/dL LDL Cholesterol Calculated 121(H) <100 mg/dL [facility] Comment:Desirable LDL: less than 100 mg/dLNear Optimal/Above Optimal LDL: 110- 129 mg/dLBorderline High LDL: 130-159 mg/dLHigh LDL: 160-189 mg/dLVery High LDL: greater than or equal to 190 mg/dL HDL Cholesterol 44 >40 mg/dL [facility] Comment:Desirable HDL: great er than 40 mg/dL Note: This HDL assay may give artificially low results in patients with liver disease. Blood Venous blood specimen / Unknown 07/27/2024 9:50 AM EDT 07/27/2024 11:04 AM EDT us Maddi Buenrostro MD LAB BLOOD ORDERABLES Final Resul t Performing Organization Address City/Va Hospital/ZIP Co de Phone Number [facility] [address] [place] [address] [phone] from Last 3 Months or Most Recently Relevant to Health Maintenance Insurance [facility] [place] [id number] Care Teams Plastics Engineer Relationship Specialty Start Date End Date Delia Romero CNP PCP - General Family Medicine 09/24/24
--- OUTSIDE RECORDS SUMMARY | 2025-07-12 16:03 | XMS_ITS | Encounter Summary ---
Author Organization [employer] [facility] Address [address] [facility] [address] [place] [address] Care Team Providers Care Anger Control Counselor Name Role Phone Delia Romero CNP Primary Care Provider [phone] Reason for Visit * Reason Comments Med Refill Encounter Details Date Type Department Care Team (Late st Contact Info) Description 06/22/2024 Refill [facility] [address] [place], [place] [phone] Sandy Scanlon FNP [address] [place] [address] Social History Tobacco Use Types Packs/Day Years [...] Description 07/15/2025 1:30 PM EDT Office Visit [facility] [address] [place] [address] Delia Romero CNP [address] [place] [address] documented as of this encounter Visit Diagnoses Not on filedocumented in this encounter Care Teams Anger Control Counselor Relationship Specialty Start Date End Date Delia Romero CNP PCP - General Family Medicine 09/24/24 documented as of this encounter
== END 2025-07-12 13:06 | disposition home or self-care (01) ==
LOC: HO.CHCLNP 13:05
DX: K59.00 Constipation, unspecified (principal)
CPT/HCPCS: 87338

== ENCOUNTER 2025-09-05 14:51 | Outpatient (AMB) | payer OTHER, SELFPAY ==
--- NOTE | 2025-09-05 15:01 | A.OFFVIS_ITS ---
Intake Visit Reasons: Erectile Dysfunction (set) Intake Note: New patient presents today for initial visit for erectile dysfunction Urology Medication:None Blood Thinner:None Antibiotic Allergies:None Supervisor Fertilizer Processing Required: Yes Supervisor Fertilizer Processing Name: [id number] Information Interpreted: non-clinical & clinical Allergies No Known Allergies Allergy (Verified 09/05/25 15:02) Medication List - Last Reconciled 09/05/25 by Gris Suresh MD docusate sodium 100 mg PO BID hydroxyzine HCl 25 mg PO TID PRN polyethylene glycol 3350 grams PO DAILY HPI Comments Details: 09/05/2025--Tal is a 55-year-old male who is here for evaluation for erectile dysfunction. History of Present Illness The patient is a 55 year old individual presenting for evaluation for erectile dysfunction. The patient has previously used sildenafil, which was effective in achieving an erection for sexual activity, but the patient does not recall the dosage. The patient also recalls seeing a Urologist a long time ago for prematur e ejaculation and was treated with an antianxiety med which was helpful at the time. The patient also reports post-void dribbling. IIEF-5 [facility]-16 Plan 1. Erectile Dysfunction - Blood work will be ordered to check testosterone levels, to be drawn first thing in the morning while fasting. - A penile Doppler test will be scheduled - The patient will be contacted to schedule the Doppler test, and the next steps in management will be determined after the results are available. 2. Post-Void Dribbling - Advised the patient to be more patient after urinating to allow dribbling to finish before pulling up underwear. -Will monitor [facility] Medical History Class 2 severe obesity due to excess calories with serious comorbidity and body mass index (BMI) of 37.0 to 37.9 in adult Constipation, unspecified Hypertension Screening for malignant neoplasm of colon Anxiety Review of Systems Const All systems reviewed & are unremarkable except as noted in HPI and below Reports no additional complaints Eyes Reports no additional complaints ENT Reports no additional complaints Card Reports no additional complaints Resp Reports no additional complaints GI Reports no additional complaints Reports as per HPI Musc Reports no additional complaints Skin/Breast Reports system reviewed and no additional complaints, except as documented Neuro Reports no additional complaints Psych Reports no additional complaints Endo Reports no additional complaints Leo/Lymph Reports no additional complaints Aller/Immun Reports no additional complaints Physical Exam Const General: healthy appearing, no acute distress and well developed Orientation/consciousness: patient oriented x3 HEENT Head: Yes normocephalic and Yes atraumatic Eyes Conjunctivae: conjunctivae normal Neck Neck: Yes normal visual inspection Chest Chest palpation & inspection: normal inspection of the chest Resp Effort & Inspection: normal respiratory effort GI Inspection: Yes normal to inspection Neuro General: patient oriented x3 Psych Appearance: grossly normal Affect: normal affect Assessment & Plan Assessment & Plan (1) Erectile dysfunction: Code(s): N52.9 - Male erectile dysfunction, unspecified Category: Medical Plan Plan 1. Erectile Dysfunction - Blood work will be ordered to check testosterone levels, to be drawn first thing in the morning while fasting. - A penile Doppler test will be scheduled - The patient will be contacted to schedule the Doppler test, and the next steps in management will be determined after the results are available. 2. Post-Void Dribbling - Advised the patient to be more patient after urinating to allow dribbling to finish before pulling up underwear. -Will monitor Orders: Orders Testosterone, Free/Total Today N52.9 - Male erectile dysfunction, unspecified US duplex arterial venous comp Today N52.9 - Male erectile dysfunction, uns pecified Patient Instructions: The patient had an opportunity to ask questions regarding treatment plan. The patient expressed understanding and agreement with the above treatment plan. The patient is aware they should contact our office by phone for worsening of their current condition or the appearance of new symptoms. Compliance is enc ouraged with any medications and followup testing that is ordered. It is a privilege to be allowed the opportunity to participate in the urologic care of your patient. If you have any questions or concerns regarding treatment for the above conditions please do not hesitate to contact me. The office telephone contact is [phone]. This note is constructed in part using voice recognition software. While every effort has been made to ensure accuracy adult basic education teacher errors may have been included. Yours sincerely, Gris Suresh MD Scribe Plan - Not visible on output: Patient was informed and verbally consented to the use of an ambient scribe for clinic note documentation during this visit. Coding Level of Care Code New Pt Level 4 (59741) Diagnoses Erectile dysfunction N52.9 IIEF-5 Questionnaire IIEF-5 How do you rate your confidence that you could get and keep an erection?: 3- Moderate When you had erections with sexual stimulation, how often were your erections hard enough for penetration?: Most times(much more than half the time) During sexual intercourse, how often were you able to maintain your erection after your had penetrated(entered) your partner?: Almost always/ always During sexual intercourse, how difficult was it to maintain your erection to completion of intercourse?: Not Difficult When you attempted sexual intercourse, how often was it satisfactory for you?: Most times(much more than half the time) IIEF-5 Score IIEF-5 Score: 16
--- OUTSIDE RECORDS SUMMARY | 2025-09-05 18:08 | XMS_ITS | Encounter Summary ---
Author Organization [employer] [facility] Address [address] [facility] [address] [place] [address] Care Team Providers Care Inside Polisher Name Role Phone Delia Romero CNP Primary Care Provider [phone] Reason for Visit * Reason Comments Med Refill Encounter Details Date Type Department Care Team (Late st Contact Info) Description 06/22/2024 Refill [facility] [address] [place], [place] [phone] Sandy Scanlon FNP [address] [place] [address] Social History Tobacco Use Types Packs/Day Years Used Date Smoking Tobacco: Never Passive Smoke Exposure: Never Smokeless Tobacco: Never Sex and Gender Information Value Date Recorded Sex Assigned at Male 07/01/2023 10:32 AM EDT Legal Sex Male 10:22 AM EDT Gender Identity Male 07/01/2023 10:32 AM EDT Sexual Orientation Straight 07/01/2023 10 :32 AM EDT documented as of this encounter Plan of Treatment Not on file documented as of this encounter Visit Diagnoses Not on filedocumented in this encounter Care Teams Inside Polisher Relationship Specialty Start Date End Date Delia Romero CNP PCP - General Family Medicine 09/24/24 documented as of this encounter
--- OUTSIDE RECORDS SUMMARY | 2025-09-05 18:08 | XMS_ITS | Clinical Summary ---
Author Organization [employer] Address [address] [facility] [address] [place] [address] Care Team Providers Care Grinder Set Up Operator Centerless Name Role Phone Delia Romero [facility] Primary Care Provider [phone] Allergies No known active allergies Medications * This document contains information received from the source organization and may not represent a complete record from that organization. sildenafil (Viagra) 50 MG tabletIndication s:Erectile dysfunction, unspecified erectile dysfunction type Take 1 tablet (50 mg) by mouth if needed for erectile dysfunction. 10 tablet 11 4 Active hydrOXYzine HCl (Atarax) 25 MG tabletIndication s:Anxiety Take 1 tablet (25 mg) by mouth if needed in the morning, at noon, and at bedtime for itching. 90 tablet 5 Active losartan (Cozaar) 50 MG tabletIndication s:Hypertension, unspecified type Take 1 tablet (50 mg) by mouth Once per day. 90 tablet 5 Active Omeprazole 20 MG tablet delayed-releaseI ndications:H. pylori infection Take 1 tablet (20 mg) by mouth 2 times daily. 30 tablet 1 5 Active triamcinolone (Kenalog) 0.1 % creamIndications :Eczema, unspecified type Apply topically if needed in the morning and at bedtime (pain and swelling). 30 g 2 5 Active EPINEPHrine (Epipen) 0.3 MG/0.3ML injection syringeIndicatio ns:Allergy, sequela Inject 0.3 mL (0.3 mg) as directed 1 (one) time for 1 dose. use as directed for allergic reaction and then call 911 0.3 mL 5 Active omeprazole (PriLOSEC) [address] capsule TOME 1 C PSULA POR V A ORAL DOS VECES AL D A *INSURANCE ONLY ALLOW 1 CAP PER DAY 10/08/202 5 Active Active Problems Problem Noted Date Diagnosed Date Healthcare maintenance 09/24/2024 Assessment & Plan (09/24/2024 3:22 PM EST): Offered due vaccinations, pt declines. Pt declines STI/STD screening today. Will send referral for [facility] for routine dental examination Ordered CBC [...] with 1 repeat. -ER precautions given Encounters * This document contains information received from the source organization and may not represent a complete record from that organization. Date Type Department Care Team Description 08/15/2025 Telephone [facility] [address] [place] [address] Delia Romero CNP chart prep 07/15/2025 1:30 PM EDT Office Visit [facility] [address] [place] [address] Delia Romero CNP Eczema, unspecified type (Primary Dx); Allergy, sequela; H. pylori infection 07/15/2025 Travel 07/14/2025 Travel 07/14/2025 Telephone [facility] [address] [place] [address] Delia Romero CNP chart prep 07/13/2025 Results Follow-Up [facility] [address] [place] [address] Delia Romero CNP CBC auto differential, Iron And Total Iron Binding Capacity, Comprehensive Metabolic Panel, Helicobacter pylori Antigen, EIA, Stool 07/13/2025 Orders Only [facility] [address] [place] [address] Delia Romero CNP H. pylori infection (Primary Dx) 2025 Orders Only [facility] [address] [place] [address] Delia Romero CNP Hypertension, unspecified type 2025 Telephone [facility] [address] [place] [address] Delia Romero CNP 07/04/2025 Telephone [facility] [address] [place] [address] Delia Romero CNP Med Refill 06/15/2025 9:45 AM EDT Office Visit [facility] [address] [place] [address] Delia Romero CNP Encounter for screening for malignant neoplasm of colon (Primary Dx); Anxiety; Constipation, unspecified constipation type; Erectile dysfunction, unspecified erectile dysfunction type; Hypertension, unspecified type; Dietary counseling; Exercise counseling; Class 2 severe obesity due to excess calories with serious comorbidity and body mass index (BMI) of 37.0 to 37.9 in adult ([facility]) 06/15/2025 Travel 06/07/2025 Telephone [facility] [address] [place] [phone] Delia Romero CNP chart prep from Last [...] is your housing situation today? I have demetriorehana yao 12/24/[address] you [...] Sign Reading Time Taken Comments Blood Pressure 136/80 07/15/2025 1:26 PM EDT Pulse 88 07/15/2025 1:26 PM EDT Temperature 36.3 C (97.3 F) 07/15/2025 1:26 PM EDT Respiratory Rate 16 07/15/2025 1:26 PM EDT Oxygen Saturation 96% 07/15/2025 1:26 PM EDT Inhaled Oxygen Concentration - - Weight 106 kg (234 lb) 07/15/2025 1:26 PM EDT Height 167.6 cm (5' 6 ) 07/15/2025 1:26 PM EDT Body Mass Index 37.77 07/15/2025 1:26 PM EDT Plan of Treatment Health Maintenance Due Date Last Done Comments [...] 12/24/2025 12/24/2024 Alcohol/Substance Use Screening 01/05/2026 01/05/2025 Tobacco Screening 01/05/2026 01/05/2025 Disability Screening 07/14/2026 07/14/2025 Lipid Panel 07/27/2029 07/27/2024 DTaP/Tdap/Td Vaccines (2 [...] Procedure Name Priority Date/Time Associated Diagnosis Comments HELICOBACTER PYLORI AG, EIA, STOOL Routine 07/12/2025 1:00 PM EDT Constipation, unspecified constipation type COMPREHENSIVE METABOLIC PANEL Routine 06/15/2025 10:26 AM [...] Relevant to Health Maintenance Results * (ABNORMAL) Helicobacter pylori??Antigen, EIA, Stool (07/12/2025 1:00 PM EDT) H pylori Ag Stool SEE NOTE(A) [facility] Comment:HELICOBACTER PYLORI AG, EIA, STOOL Micro Number: [id number] Test Status: Final Specimen Source: Stool Specimen Quality: Adequate H.pylori Ag: Detected Reference Range: Not DetectedTHIS TEST WAS PERFORMED AT:[employer] [place] [id number] FRANKLIN MD Stool Rectal contents / Unknown 07/12/2025 1:00 PM EDT 07/12/2025 2:12 PM EDT [facility] LAB BODY FLUIDS AND STOOL S ORDERABLES Final Result [facility] [address] [place] [phone] * (ABNORMAL) CBC auto differential (06/15/2025 10:26 AM EDT) White Blood Count 9.2 4.8 - 10.8 X10*3/uL [facility] Red Blood Count 5.25 4.60 - 5.80 X10*6/uL [facility] Hemoglobin 14.7 14.0 - 18.0 g/dl [facility] Hematocrit 43.7 42.0 - 52.0 % [facility] Mean Corpuscular Volume 83.2 80.0 - 98.0 fL [facility] Mean Corpuscular Hemoglobin 28.0 27.0 - 33.0 pg [facility] Mean Corpuscular HGB Conc 33.6 31.0 - 36.0 g/dl [facility] Red Cell Distribution Width 12.1 11.0 - 16.0 % [facility] Platelet Count 187 160 - 400 X10*3/uL [facility] Mean Platelet Volume 11.8 9.4 - 12.4 fL [facility] Neutrophils Percent Auto 54.6 45 - 73 % [facility] Imm Gran Pct Auto 0.5(H) 0.0 - 0.4 % [facility] Lymphocytes Percent Auto 28.2 20 - 40 % [facility] Monocytes Percent Auto 8.0 2 - 11 % [facility] Eosinophils Percent Auto 7.6(H) 0 - 4 % [facility] Basophils Percent Auto 1.1 0 - 2 % [facility] NRBC Pct Auto 0.0 0.0 - 0.2 /100WBC [facility] Neutrophils Absolute Auto 5.0 2.0 - 8.3 x10*3/uL [facility] Imm Gran Abs Auto 0.05(H) 0.00 - 0.03 X10*3/uL [facility] Lymphocytes Absolute Auto 2.6 1.2 - 4.9 X10*3/uL [facility] Monocytes Absolute Auto 0.7 0.1 - 1.2 X10*3/uL [facility] Eosinophils Absolute Auto 0.7(H) 0.0 - 0.4 X10*3/uL [facility] Basophils Absolute Auto 0.1 0.0 - 0.2 X10*3/uL [facility] NRBC Abs Auto 0.000 0.0 - 0.012 X10*3/uL [facility] Blood Venous blood specimen / Unknown 06/15/2025 10:26 AM EDT 06/15/2025 2:23 PM EDT [facility] LAB BLOOD ORDERABLES Niesha l Result [facility] [address] [place] [phone] * Iron And Total Iron Binding Capacity (06/15/2025 10:26 AM EDT) Iron 83 45 - 160 mcg/dL [facility] Total Iron Binding Capacity 254 228 - 428 mcg/dL [facility] Percent Iron Saturation 33 15 - 50 % [facility] Unsaturated Iron Binding 171 ug/dL [facility] Blood Venous blood specimen / Unknown 06/15/2025 10:26 AM EDT 06/15/2025 2:35 PM EDT [facility] LAB BLOOD ORDERABLES Niesha l Result Performing Organization Address City/[facility] [address]/ZIP Co de Phone Number [facility] [address] [place] [phone] * (ABNORMAL) Comprehensive Metabolic Panel (06/15/2025 10:26 AM EDT) Sodium 139 135 - 145 mmol/L [facility] Potassium 4.0 3.3 - 5.1 mmol/L [facility] Chloride 105 96 - 108 mmol/L [facility] Carbon Dioxide 28 22 - 29 mmol/L [facility] Anion Gap 10(L) 12 - 20 [facility] Urea Nitrogen (BUN) 14 9 - 16 mg/dL [facility] Creatinine, Serum 1.24 0.5 - 1.4 mg/dL [facility] Estimated Glomerular Filt Rate >60 [facility] Comment:Chronic Kidney Disea se: Estimated GFR < 60 mL/min/[id number] Kidney Disease: Estimated GFR < 15 mL/min/1.73m2 Glucose 103 60 - 115 mg/dL [facility] Calcium 9.2 8.4 - 10.2 mg/dL [facility] Bilirubin, Total 0.6 0.0 - 1.0 mg/dL [facility] Aspartate Amino Transferase 35 5 - 37 U/L [facility] Alanine Aminotransferase 19 0 - 40 U/L [facility] Total Protein 7.9 6.5 - 8.0 g/dL [facility] Albumin Level 4.3 3.5 - 5.0 g/dL [facility] Alkaline Phosphatase 58 39 - 117 U/L [facility] Blood Venous blood specimen / Unknown 06/15/2025 10:26 AM EDT 06/15/2025 2:35 PM EDT [facility] CARE SUPERVISOR LAB BLOOD ORDERABLES Niesha l Result Performing Organization Address City/[facility] [address]/ZIP Co de Phone Number [facility] [address] [place] [phone] * (ABNORMAL) Lipid Panel, Standard (07/27/2024 9:50 AM EDT) Triglycerides 76 <150 mg/dL [facility] Comment:Desirable Triglyceri de: less than 150 mg/dLBorderline High Triglyceride 150-199 mg/dLHigh Triglyceride: 200-499 mg/dLVery High Triglyceride: greater than or equal to 5OO mg/dL Cholesterol 180 <200 mg/dL [facility] Comment:Desirable Cholestero l: less than 200 mg/dLBorderline High Cholesterol: 200-239 mg/dLHigh Cholesterol: greater than 239 mg/dL LDL Cholesterol Calculated 121(H) <100 mg/dL [facility] Comment:Desirable LDL: less than 100 mg/dLNear Optimal/Above Optimal LDL: 110- 129 mg/dLBorderline High LDL: 130-159 mg/dLHigh LDL: 160-189 mg/dLVery High LDL: greater than or equal to 190 mg/dL HDL Cholesterol 44 >40 mg/dL [facility] Comment:Desirable HDL: great er than 40 mg/dL Note: This HDL assay may give artificially low results in patients with liver disease. Blood Venous blood specimen / Unknown 07/27/2024 9:50 AM EDT 07/27/2024 11:04 AM EDT us Maddi Buenrostro MD LAB BLOOD ORDERABLES Final Resul t [facility] [address] [place] [phone] from Last 3 Months or Most Recently Relevant to Health Maintenance Insurance [employer] HSN [facility] 1 Care Teams Grinder Set Up Operator Centerless Relationship Specialty Start Date End Date Delia Romero CNP PCP - General Family Medicine 09/24/24
--- OUTSIDE RECORDS SUMMARY | 2025-09-05 18:08 | XMS_ITS | Encounter Summary ---
Author Organization [employer] Address [address] [facility] [address] [place] [address] Care Team Providers Care Marketing Program Coordinator Name Role Phone Nick Delia FAUSTINO Primary Care Provider [phone] Reason for Visit * Reason Comments Med Refill Encounter Details Date Type Department Care Team (Late st Contact Info) Description 08/24/2024 Refill [facility] [address] [place], [place] [phone] Ramila Palafox MD [address] [place], [place] [phone] Hypertension, unspecified type Social History Tobacco Use [...] requesting refill on BP medication from Sandy Scalnon NP. Pt informed would need to be [...] documented in this encounter Plan of Treatment Not on file documented as of this encounter Visit Diagnoses Diagnosis Hypertension, unspecified type documented in this encounter Care Teams Marketing Program Coordinator Relationship Specialty Start Date End Date Delia Romero CNP PCP - General Family Medicine 09/24/24 documented as of this encounter
== END 2025-09-05 15:48 | disposition home or self-care (01) ==
LOC: HO.HUSH 14:52
PROVIDERS: Visit Provider Urology
DX: N52.9 Male erectile dysfunction, unspecified (principal)
CPT/HCPCS: 99204

== ENCOUNTER → 2025-09-05 14:51 | Outpatient (BNVA) | payer OTHER, SELFPAY | PROVIDERS: Visit Provider Urology | DX: N52.9 Male erectile dysfunction, unspecified (principal) | CPT/HCPCS: 99202 ==

== ENCOUNTER 2025-09-15 09:30 | Outpatient (REF) | payer OTHER, SELFPAY | END 2025-09-15 09:31 | LOC: HO.LAB 09:30 | PROVIDERS: Absent Provider Urology | DX: N52.9 Male erectile dysfunction, unspecified (principal) | CPT/HCPCS: 36415; 84402; 84403 ==